=== PATIENT | female | born 1950 | race Caucasian/White ===

== ENCOUNTER 2021-01-10 16:14 | Observation (INO) ==
[2021-01-10] MEDS ORDERED: ONDANSETRON 4 MG/2 ML VIAL IV PRN (16:21)
[2021-01-10] MEDS ORDERED: ACETAMINOPHEN 325 MG TABLET PO PRN (16:21)
[2021-01-10] MEDS ORDERED: MAGNESIUM SULF RIDER 4 GM in PREMIX 1 EACH IV PRN (16:21)
[2021-01-10] MEDS ORDERED: ALUMINUM/MAGNES/SIMETH MAX STR 30 ML UDCUP PO PRN (16:21)
[2021-01-10] MEDS ORDERED: hydrALAZINE 20 MG/1 ML VIAL IV PRN (16:21)
[2021-01-10] MEDS ORDERED: BISACODYL 5 MG TABLET PO PRN (16:21)
[2021-01-10] MEDS ORDERED: MAGNESIUM SULF RIDER 2 GM in PREMIX 1 EACH IV PRN (16:21)
[2021-01-10] MEDS ORDERED: ZALEPLON 5 MG CAPSULE PO PRN (16:21)
[2021-01-10] MEDS ORDERED: ENOXAPARIN 30 MG/0.3 ML SYRINGE SUBCUT SCH (16:30)
[2021-01-10] MEDS ORDERED: METOPROLOL SUCCINATE XL 50 MG TABLET PO ONE (16:32)
[2021-01-10] MEDS ORDERED: BUDESONIDE/FORMOTEROL 160-4.5 INHALER 6 GM INH PRN (16:35)
[2021-01-10] MEDS: INSULIN REGULAR 100 UNIT/ML SUBCUT SCH ×2 (17:21→21:07)
[2021-01-10] MEDS: FUROSEMIDE 40 MG/4 ML VIAL IV SCH (17:45)
[2021-01-10 18:41] LABS: Basophils # 0.1 10*3/uL (0.0-0.2); Eosinophils # 0.2 10*3/uL (0.0-0.87); Hematocrit 41.4 VOL% (35.7-47.0); Hemoglobin 12.8 GM/DL (12.0-16.0); Immature Granulocytes % 0.5 %; Immature Granulocytes Absolute 0.05 #; Lymphocytes # 1.1 10*3/uL (1.4-4.0); Lymphocytes % 12.1 % (21.3-54.2); Mean Corpuscular HGB Conc 30.9 GM/DL (32-36); Mean Corpuscular Volume 91.8 FL (87-102); Mean Platelet Volume 10.7 FL (9.6-12.0); Monocytes % 7.7 % (1.7-12.7); Neutrophils % 76.7 % (38.7-73.9); Platelet Count 235 T/CUMM (130-400); Red Blood Count 4.51 MC/CUMM (3.8-5.5); Red Cell Distribution Width 12.9 % (9.3-17.3); White Blood Count 9.4 T/CUMM (4-12)
[2021-01-10 19:06] LABS: Albumin 3.4 G/DL (3.4-5.0); Bilirubin,Total 0.4 MG/DL (0.2-1.0); Calcium 8.6 MG/DL (8.5-10.1); Osmolality,Calculated 282.7 MOS/KG (273-304); Potassium 4.9 MMOL/L (3.5-5.1); Total Protein 6.5 G/DL (5.0-7.5)
[2021-01-10 19:08] LABS: Troponin I < 0.015 NG/ML (0.00-0.045)
[2021-01-10] MEDS ORDERED: APIXABAN 5 MG TABLET PO SCH (21:00)
[2021-01-10] MEDS: DIGOXIN 0.5 MG/2 ML AMP IV SCH (21:38)
[2021-01-10 22:31] LABS: Troponin I < 0.015 NG/ML (0.00-0.045)
[2021-01-11] MEDS: DIGOXIN 0.5 MG/2 ML AMP IV SCH (03:45)
[2021-01-11 06:50] LABS: Basophils # 0.1 10*3/uL (0.0-0.2); Basophils % 1.2 % (0.0-0.8); Eosinophils # 0.3 10*3/uL (0.0-0.87); Eosinophils % 3.8 % (0.00-10.9); Hematocrit 41.7 VOL% (35.7-47.0); Hemoglobin 12.8 GM/DL (12.0-16.0); Immature Granulocytes % 0.3 %; Immature Granulocytes Absolute 0.02 #; Lymphocytes # 1.4 10*3/uL (1.4-4.0); Mean Corpuscular HGB Conc 30.7 GM/DL (32-36); Mean Corpuscular Volume 91.9 FL (87-102); Mean Platelet Volume 10.8 FL (9.6-12.0); Monocytes % 9.9 % (1.7-12.7); Neutrophils % 64.8 % (38.7-73.9); Platelet Count 211 T/CUMM (130-400); Red Blood Count 4.54 MC/CUMM (3.8-5.5); Red Cell Distribution Width 12.7 % (9.3-17.3); White Blood Count 6.8 T/CUMM (4-12)
[2021-01-11] MEDS ORDERED: BISACODYL 5 MG TABLET PO ONE (07:00)
[2021-01-11 07:22] LABS: Calcium 9.2 MG/DL (8.5-10.1); Osmolality,Calculated 285.4 MOS/KG (273-304); Potassium 4.7 MMOL/L (3.5-5.1); Risk Ratio 3.79; VLDL CHOLESTEROL 13.8 MG/DL
[2021-01-11] MEDS: FUROSEMIDE 40 MG/4 ML VIAL IV SCH ×2 (09:26→16:53)
[2021-01-11] MEDS: POTASSIUM CHLORIDE 20 MEQ TABLET PO SCH (09:27)
[2021-01-11] MEDS: METOPROLOL SUCCINATE XL 100 MG TABLET PO SCH (09:28)
[2021-01-11] MEDS: LOSARTAN 50 MG TABLET PO SCH (09:28)
[2021-01-11] MEDS: INSULIN REGULAR 100 UNIT/ML SUBCUT SCH ×4 (09:30→20:23)
[2021-01-11] MEDS: PANTOPRAZOLE 40 MG TABLET PO SCH (09:41)
[2021-01-11] MEDS: APIXABAN 2.5 MG TABLET PO SCH ×2 (11:34→20:24)
[2021-01-12 05:38] LABS: Basophils # 0.1 10*3/uL (0.0-0.2); Basophils % 1.2 % (0.0-0.8); Eosinophils # 0.2 10*3/uL (0.0-0.87); Eosinophils % 2.4 % (0.00-10.9); Hematocrit 43.8 VOL% (35.7-47.0); Hemoglobin 14.1 GM/DL (12.0-16.0); Immature Granulocytes % 0.5 %; Immature Granulocytes Absolute 0.04 #; Lymphocytes # 1.2 10*3/uL (1.4-4.0); Lymphocytes % 14.2 % (21.3-54.2); Mean Corpuscular HGB Conc 32.2 GM/DL (32-36); Mean Corpuscular Volume 89.8 FL (87-102); Mean Platelet Volume 10.9 FL (9.6-12.0); Monocytes % 7.7 % (1.7-12.7); Platelet Count 223 T/CUMM (130-400); Red Blood Count 4.88 MC/CUMM (3.8-5.5); Red Cell Distribution Width 12.5 % (9.3-17.3); White Blood Count 8.3 T/CUMM (4-12)
[2021-01-12 05:57] LABS: Calcium 8.8 MG/DL (8.5-10.1); Osmolality,Calculated 287.4 MOS/KG (273-304); Potassium 4.6 MMOL/L (3.5-5.1)
[2021-01-12] MEDS: INSULIN REGULAR 100 UNIT/ML SUBCUT SCH ×4 (08:16→22:36)
[2021-01-12] MEDS: POTASSIUM CHLORIDE 20 MEQ TABLET PO SCH (09:16)
[2021-01-12] MEDS: LOSARTAN 50 MG TABLET PO SCH (09:17)
[2021-01-12] MEDS: METOPROLOL SUCCINATE XL 100 MG TABLET PO SCH (09:17)
[2021-01-12] MEDS: PANTOPRAZOLE 40 MG TABLET PO SCH (09:17)
[2021-01-12] MEDS: APIXABAN 2.5 MG TABLET PO SCH ×2 (09:17→20:48)
[2021-01-12] MEDS: FUROSEMIDE 40 MG/4 ML VIAL IV SCH ×2 (11:25→18:43)
[2021-01-13 05:23] LABS: Basophils # 0.1 10*3/uL (0.0-0.2); Basophils % 1.2 % (0.0-0.8); Eosinophils # 0.3 10*3/uL (0.0-0.87); Eosinophils % 3.2 % (0.00-10.9); Hemoglobin 14.6 GM/DL (12.0-16.0); Immature Granulocytes % 0.4 %; Immature Granulocytes Absolute 0.03 #; Lymphocytes # 1.4 10*3/uL (1.4-4.0); Lymphocytes % 18.2 % (21.3-54.2); Mean Corpuscular HGB Conc 31.7 GM/DL (32-36); Mean Platelet Volume 10.5 FL (9.6-12.0); Monocytes % 10.4 % (1.7-12.7); Neutrophils % 66.6 % (38.7-73.9); Platelet Count 215 T/CUMM (130-400); Red Blood Count 5.17 MC/CUMM (3.8-5.5); Red Cell Distribution Width 12.6 % (9.3-17.3); White Blood Count 7.7 T/CUMM (4-12)
[2021-01-13 05:41] LABS: Osmolality,Calculated 285.5 MOS/KG (273-304); Potassium 4.4 MMOL/L (3.5-5.1)
[2021-01-13] MEDS: INSULIN REGULAR 100 UNIT/ML SUBCUT SCH ×4 (07:25→20:03)
[2021-01-13] MEDS: LOSARTAN 50 MG TABLET PO SCH (08:41)
[2021-01-13] MEDS: POTASSIUM CHLORIDE 20 MEQ TABLET PO SCH (08:41)
[2021-01-13] MEDS: METOPROLOL SUCCINATE XL 100 MG TABLET PO SCH (08:41)
[2021-01-13] MEDS: PANTOPRAZOLE 40 MG TABLET PO SCH (08:41)
[2021-01-13] MEDS: APIXABAN 2.5 MG TABLET PO SCH ×2 (08:41→21:17)
[2021-01-13] MEDS: FUROSEMIDE 40 MG/4 ML VIAL IV SCH (10:23)
[2021-01-14 06:33] LABS: Basophils # 0.1 10*3/uL (0.0-0.2); Basophils % 1.5 % (0.0-0.8); Eosinophils # 0.3 10*3/uL (0.0-0.87); Eosinophils % 3.3 % (0.00-10.9); Hematocrit 46.1 VOL% (35.7-47.0); Hemoglobin 14.7 GM/DL (12.0-16.0); Immature Granulocytes % 0.3 %; Immature Granulocytes Absolute 0.02 #; Lymphocytes # 1.3 10*3/uL (1.4-4.0); Lymphocytes % 17.7 % (21.3-54.2); Mean Corpuscular HGB Conc 31.9 GM/DL (32-36); Mean Platelet Volume 10.7 FL (9.6-12.0); Neutrophils % 67.2 % (38.7-73.9); Platelet Count 234 T/CUMM (130-400); Red Blood Count 5.12 MC/CUMM (3.8-5.5); Red Cell Distribution Width 12.5 % (9.3-17.3); White Blood Count 7.5 T/CUMM (4-12)
[2021-01-14 06:52] LABS: Calcium 8.9 MG/DL (8.5-10.1); Osmolality,Calculated 284.8 MOS/KG (273-304); Potassium 4.7 MMOL/L (3.5-5.1)
[2021-01-14] MEDS ORDERED: FUROSEMIDE 40 MG TABLET PO SCH (09:00)
[2021-01-14] MEDS: METOPROLOL SUCCINATE XL 100 MG TABLET PO SCH (09:58)
[2021-01-14] MEDS: LOSARTAN 50 MG TABLET PO SCH (09:59)
[2021-01-14] MEDS: APIXABAN 2.5 MG TABLET PO SCH (09:59)
[2021-01-14] MEDS: POTASSIUM CHLORIDE 20 MEQ TABLET PO SCH (09:59)
[2021-01-14] MEDS: INSULIN REGULAR 100 UNIT/ML SUBCUT SCH ×2 (10:01→12:32)
[2021-01-14] MEDS ORDERED: MAGNESIUM HYDROXIDE SUSP 30 ML UDCUP PO ONE (10:11)
[2021-01-14] MEDS: PANTOPRAZOLE 40 MG TABLET PO SCH (10:16)
[2021-01-14] MEDS ORDERED: PIOGLITAZONE 15 MG TABLET PO SCH (13:00)
[2021-01-14 16:05] VITALS: BP 114/64
== END 2021-01-14 16:07 | disposition home or self-care (01) ==
LOC: INTOOBSV 16:21 → N.TELES 16:43
PROVIDERS: ADMIT Internal Medicine Cardiovascular Disease; ATTEND Internal Medicine Cardiovascular Disease